=== PATIENT | female | born 1960 | race Caucasian/White ===

== ENCOUNTER → 2018-12-27 | Outpatient (CLI) | payer BC, OTHER ==
--- NOTE | 2018-12-27 13:04 | Diagnostic Imaging Report ---
PROCEDURE: US Thyroid. TECHNIQUE: Multiple real-time grayscale images were obtained of the thyroid in various projections. INDICATION: Multinodular goiter. COMPARISON: None available. FINDINGS: The left lobe of the thyroid gland measures 5.0 x 1.6 x 1.3 cm. A 0.9 x 0.6 x 0.6 cm round isoechoic solid-appearing nodule is present within the inferior pole of the left thyroid lobe. An additional 0.5 x 0.4 cm rounded cystic nodule in the posterior aspect of the mid left thyroid lobe. An additional 0.3 cm hypoechoic nodule within the anterior aspect of the mid left thyroid lobe. The right lobe of thyroid gland measures 5.2 x 1.5 x 1.6 cm. A part cystic and part solid nodule is identified within the mid right thyroid lobe measuring 1.2 x 0.8 x 1.1 cm. In additional part cystic and part solid nodule in the mid to superior aspect of the right thyroid lobe measuring 0.9 x 0.7 cm. The isthmus is unremarkable. IMPRESSION: Bilateral thyroid nodules as described above, largest measuring 1.2 x 1.0 cm within the mid right thyroid lobe which is partially cystic and solid. Given findings, a followup ultrasound is recommended in one year to monitor stability. Dictated by: Dictated on workstation # [id number]
== END ==
LOC: RAD 10:50
PROVIDERS: ATTEND Internal Medicine Endocrinology, Diabetes & Metabolism
DX: E04.2 Nontoxic multinodular goiter (principal)
CPT/HCPCS: 36415; 76536; 84443

== ENCOUNTER → 2020-04-27 | Outpatient (CLI) | payer BC, OTHER ==
--- NOTE | 2020-04-27 13:10 | Diagnostic Imaging Report ---
PROCEDURE: US Thyroid. TECHNIQUE: Multiple Real-time grayscale images were obtained of the thyroid in various projections. INDICATION: Multinodular goiter. COMPARISON: 12/27/2018. FINDINGS: The right lobe of the thyroid measures 5.6 x 1.0 x 1.4 cm and the left lobe measures 5.0 x 1.3 x 1.6 cm. The isthmus is 2 mm in thickness. There are multiple cystic and mixed solid and cystic hypoechoic nodules in both lobes of the thyroid gland. All nodules are less than 1 cm in size. A mixed nodule in the upper pole of the right lobe is approximately 7 mm x 8 mm. Nodules on the left are approximately 3 to 5 mm in size. No dominant mass is detected. No suspicious microcalcifications are seen. IMPRESSION: Multinodular thyroid, suggestive of a multinodular goiter. No dominant mass is detected. Dictated by: Dictated on workstation # [id number]
== END ==
LOC: RAD 11:30
PROVIDERS: ATTEND Internal Medicine Endocrinology, Diabetes & Metabolism
DX: E04.2 Nontoxic multinodular goiter (principal)
CPT/HCPCS: 76536